=== PATIENT | female | born 1990 | race Caucasian/White ===

== ENCOUNTER 2017-03-28 18:37 | Observation (INO) | payer BC, OTHER ==
[~2017-03-28 18:37] MED LIST: ERYTHROMYCIN3.5 GM OP; MOTRIN200 MG/TAB PO; MOTRIN800 MG PO; NORCO 5-325 TA1 EACH PO; NORCO 5/325 TAB1 TAB PO; ORTHO-CYCLEN1 TAB; OXYCODONE/APAP PO; PROMETHAZINE12.5 M2 PO; SERTRALINE HCL50 MG PO; SPRINTEC1 TAB PO; ZOFRAN ODT4 MG PO
[2017-03-28] MEDS ORDERED: FOLIC ACID1 M1 PO (19:07)
[2017-05-21] MEDS ORDERED: PERCOCET 5-3251 EACH PO (15:26)
[2017-05-21] MEDS ORDERED: IBUPROFEN800 M1 PO (15:27)
[2017-05-22] MEDS ORDERED: NORCO 5-325 TA1 EACH PO (09:53)
[2017-05-22] MEDS ORDERED: PRENATAL-U CAPS1 CAP PO (09:56)
== END 2017-03-28 20:44 ==
LOC: LDR 18:37
PROVIDERS: ADMIT Obstetrics & Gynecology
DX: O36.8130 Decreased fetal movements, third trimester, not applicable or unspecified (principal); O99.89 Other specified diseases and conditions complicating pregnancy, childbirth and the puerperium; R19.7 Diarrhea, unspecified; Z3A.31 31 weeks gestation of pregnancy; Z88.0 Allergy status to penicillin; Z88.2 Allergy status to sulfonamides; Z90.89 Acquired absence of other organs; Z98.890 Other specified postprocedural states